=== PATIENT | male | born 1995 | race Asian ===

== ENCOUNTER → 2017-12-18 07:59 | Outpatient (CLI) | payer BC, SELFPAY ==
--- NOTE | 2017-12-18 | DI.MRI.S_ITS ---
PROCEDURE: MR HEAD/BRAIN WO CON INDICATIONS: HEADACHES TECHNIQUE: Noncontrast axial T1 spin echo, axial T2 fast spin echo, sagittal and axial FLAIR, coronal T2 fast spin echo, axial gradient echo, axial diffusion and ADC through the brain. COMPARISON: [facility], RG, CT HEAD W/O CONTRAST, 01/14/2005, 16:50. [facility], CT, HEAD WITHOUT CONTRAST, 02/23/2010, 12:50. FINDINGS: Image quality: Excellent. CSF Spaces: Basal cisterns are patent. No extra-axial fluid collections. Ventricles are normal in size and shape. Brain: No intracranial masses or hemorrhage. Prado/white matter interface is normal. Brainstem appears normal. Diffusion-weighted images demonstrate no acute ischemic insult. No chronic ischemic insults. No suspicious flair signal changes. Normal intravascular flow voids are present. Skull and face: Calvarium has normal marrow signal. Orbits appear normal. Sinuses: There are multiple retention cysts/polyps in the bilateral maxillary and ethmoidal sinuses. No fluid signal seen within mastoid bones. There is prominent age-related adenoid tissue. IMPRESSION: 1. No acute intracranial abnormality. No space-occupying lesion or abnormal signal intensity. 2. Chronic bilateral maxillary and ethmoidal sinusitis. Prominent adenoid tissue. Dictated by: Felix Pal M.D. on 12/18/2017 at 9:53 Approved by: Felix Pal M.D. on 12/18/2017 at 10:00
== END ==
PROVIDERS: PCP Family Medicine; Visit Provider Family Medicine
DX: J32.2 Chronic ethmoidal sinusitis (principal); R51 Headache
CPT/HCPCS: 70551

== ENCOUNTER 2018-05-03 05:14 | Emergency (ER) | payer BC, SELFPAY ==
[2018-05-03 05:18] VITALS: BP 147/82; PULSE 87; RESP 16; TEMP 36.7; O2SAT 99; BMI 20.9
--- NOTE | 2018-05-03 05:28 | ED.URI ---
HPI - URI/Sore Throat General Chief Complaint: Upper Respiratory Symptoms Stated Complaint: Sore throat Time Seen by Provider: 05/03/18 05:28 Source: patient Mode of arrival: ambulatory Limitations: no limitations History of Present Illness HPI Narrative: Patient is a 22-year-old male who presents with sore throat ongoing for last day and a half. He says both of his ears her. No fever or chills. He did take Excedrin about 4 hr ago. No cough or shortness of breath. His throat hurts but he says his ears or worse. Complaint: sore throat Onset (ago): day(s) Duration: constant Relieving factors: nothing Related Data Home Medications Medication Instructions Recorded Confirmed No Known Home Medications 05/03/18 05/03/18 Allergies Allergy/AdvReac Type Severity Reaction Status Date / Time No Known Drug Allergies Allergy Verified 05/03/18 05:18 Review of Systems Review of Systems All systems reviewed & are unremarkable except as noted in HPI and below Constitutional Denies chills, Denies fever(s), Denies lethargy and Denies weakness ENT Ears, Nose, Mouth, and Throat: Reports as per HPI, Denies facial pain and Reports sore throat Cardiovascular Denies chest pain, Denies irregular heart rhythm, Denies lightheadedness, Denies palpitations, Denies dyspnea, Denies dyspnea on exertion and Denies orthopnea Respiratory Denies cough, Denies dyspnea, Denies dyspnea on exertion and Denies wheezing Gastrointestinal Gastrointestinal: Denies abdominal pain, Denies change in bowel habits, Denies diarrhea, Denies nausea and Denies vomiting Musculoskeletal Denies back pain, Denies muscle weakness, Denies numbness and Denies tingling Integumentary/Breasts Denies pruritus, Denies erythema, Denies rash and Denies wounds Neurologic Denies numbness, Denies tingling and Denies weakness Endocrine Denies palpitations Allergic/Immunologic Denies wheezing [facility] Medical History Patient denies medical problems (Acute) Social History Smoking Status: Current every day smoker Exam Initial Vital Signs Initial Vital Signs: Vital Signs Temperature 98.1 F 05/03/18 05:18 Pulse Rate 87 05/03/18 05:18 Respiratory Rate 16 05/03/18 05:18 Blood Pressure 147/82 H 05/03/18 05:18 Pulse Oximetry 99 05/03/18 05:18 GENERAL: Well-appearing, well-nourished and in no acute distress. HEENT: Head atraumatic,EOMI, pupils reactive, neck is supple no meningeal signs EARS: Tympanic membranes visualized, no erythema or bulging, no hemotympanum PHARYNX: No erythema, no tonsillar exudate, no cervical lymphadenopathy CARDIOVASCULAR: Regular rate and rhythm without murmurs, rubs or gallops. RESPIRATORY: Breath sounds equal bilaterally, no wheezes rales or rhonchi. ABDOMEN: Soft, nontender. Normoactive bowel sounds all 4 quadrants. No guarding or rebound. EXTREMITIES: Normal range of motion, no clubbing or edema. Neurovascularly intact NEUROLOGICAL: Alert and oriented x4.Normal gait and speech. Cranial nerves II through XII grossly intact. SKIN: Warm, dry, no laceration, no petechiae, no rashes or lesions. Course Vital Signs - 8 hr 05/03/18 05:18 Temperature 98.1 F Pulse Rate 87 Respiratory Rate 16 Blood Pressure 147/82 H Pulse Oximetry 99 MDM - URI/Sore Throat Lab Data Attestation: I reviewed the patient's lab results. Point of Care Testing Rapid Strep A Negative Discharge Plan Departure Patient Disposition: Home Clinical Impression: Acute upper respiratory infection Instructions: DI for Viral Upper Respiratory Infection -- Adult Activity Restrictions/Additional Instructions: *You have been diagnosed with upper respiratory infection *What to do: Strep is negative at this time no indication for antibiotics. Likely a virus this will run its course should start to feel better around 5. *Continue to take medications as directed Motrin 800 mg every 8 hr as needed for pain or fever Tylenol 650 mg every 4-6 hours if needed for pain or fever *Follow up with your primary care provider in 2-3 days *Return to ER if you should have worsening throat pain, inability to swallow, or any new, worsening or concerning symptoms Prescriptions: No Action No Known Home Medications RF: 0 Referrals: Vick Bhat MD [Primary Care Provider] -
[2018-05-03] MEDS: IBUPROFEN 400 MG TABLET 800 MG PO (05:45)
== END 2018-05-03 05:48 | disposition home or self-care (01) ==
PROVIDERS: Emergency Provider Emergency Medicine; PCP Family Medicine
DX: J06.9 Acute upper respiratory infection, unspecified (principal)
CPT/HCPCS: 87880; 99282; 99283

== ENCOUNTER 2018-11-30 21:27 | Emergency (ER) | payer BC, SELFPAY ==
[2018-11-30 21:36] VITALS: BP 124/75; PULSE 90; RESP 13; TEMP 36.8; O2SAT 99
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
--- NOTE | 2018-11-30 21:41 | PC.NURSE ---
FAST exam performed by dr sharma. Dr Sharma examined chest,heart,lungs and abdomen
[2018-11-30 22:53] VITALS: BP 120/72; PULSE 90; RESP 12; O2SAT 98
== END 2018-11-30 22:53 | disposition home or self-care (01) ==
PROVIDERS: Emergency Provider Emergency Medicine; PCP Family Medicine
DX: S20.229A Contusion of unspecified back wall of thorax, initial encounter (principal); W17.89XA Other fall from one level to another, initial encounter
CPT/HCPCS: 71046; 74019; 99282; 99283

== ENCOUNTER → 2018-12-04 09:16 | Outpatient (CLI) | payer OTHER, SELFPAY ==
--- NOTE | 2018-12-04 | DI.CT.S_ITS ---
PROCEDURE: CT CHEST WO CON INDICATIONS: Hemorrhage from other sites in respiratory passage TECHNIQUE: Noncontrast 5 mm thick sections acquired from the pulmonary apices to the posterior costophrenic angles. 1 mm lung window, 5 mm thick coronal and sagittal and 7 mm axial MIP reformats were then acquired. For radiation dose reduction, the following was used: automated exposure control, adjustment of mA and/or kV according to patient size. COMPARISON: [facility], CR, XR CHEST 2V, 11/30/2018, 21:48. FINDINGS: Image quality: Excellent. Lungs and pleura: Linear atelectasis in posterior aspect of left lower lobe near left lung base is seen. Ill-defined area of groundglass opacity is seen in posterior medial aspect of left lower lobe containing 3 adjacent lobulated cystic areas with mildly thickened wall. The largest cystic area measures 1.7 x 2.4 cm in transverse and AP dimensions. Right lung is clear. No pleural effusions or pneumothorax. Central and peripheral airways are patent and normal in caliber. Mediastinum: Heart size is normal. No pericardial effusion. No mediastinal adenopathy by size criteria. Thoracic aorta and central pulmonary arteries are normal in size. Esophagus is normal in caliber. No hiatal hernia. Bones and chest wall: No suspicious bony lesions. No vertebral body compression fractures. No axillary or supraclavicular adenopathy by size criteria. Thyroid gland is within normal limits. Abdomen: Visualized upper abdominal solid organs and bowel loops appear normal in the absence of contrast. IMPRESSION: 1. Ill-defined moderate-sized area of groundglass opacity in posterior medial aspect of left lower lobe containing 3 adjacent lobulated cystic areas and measures up to 1.7 x 2.4 cm in size. Findings could represent pulmonary contusion and pneumatic cyst formation given patient's history of recent trauma. Infectious process in left lower lobe cannot be excluded. Followup CT in 3 months is recommended for further evaluation. 2. No pleural effusion or pneumothorax. Airway is patent. 3. No mediastinal or hilar lymphadenopathy. No mediastinal hematoma. 4. No gross acute rib fracture. Dictated by: Scottie Prakash M.D. on 12/04/2018 at 13:17 Approved by: Scottie Prakash M.D. on 12/04/2018 at 13:29
== END ==
PROVIDERS: PCP Family Medicine; Visit Provider Family Medicine
DX: R04.89 Hemorrhage from other sites in respiratory passages (principal); R06.09 Other forms of dyspnea
CPT/HCPCS: 71250

== ENCOUNTER → 2020-07-06 12:33 | Outpatient (CLI) | payer OTHER, SELFPAY ==
--- NOTE | 2020-07-06 12:38 | DI.RAD.S_ITS ---
PROCEDURE: XR FOOT RT MIN 3V INDICATIONS: RIGHT FOOT AND ANKLE PAIN TECHNIQUE: 3 views of the foot were acquired. COMPARISON: [facility], CR, XR ANKLE RT MIN 3V, 07/06/2020, 12:41. FINDINGS: Bones: No fractures or dislocations. No suspicious bony lesions. Soft tissues: No tibiotalar joint effusion. Achilles tendon appears normal. IMPRESSION: No definite radiographic abnormality. If pain persists with conservative management, consider cross sectional imaging such as CT or MRI for further assessment. Dictated by: Abelardo Alexander [facility] Interpreted: Zehra Liu MD on 07/06/2020 at 13:00 Approved by: Zehra Liu M.D. on 07/06/2020 at 13:31
--- NOTE | 2020-07-06 12:38 | DI.RAD.S_ITS ---
PROCEDURE: XR ANKLE RT MIN 3V INDICATIONS: RIGHT FOOT AND ANKLE PAIN TECHNIQUE: 3 views of the ankle were acquired. COMPARISON: [facility], , XR FOOT RT MIN 3V, 07/06/2020, 12:41. FINDINGS: Bones: No fractures or dislocations. Smooth, well corticated osseous density adjacent to the medial malleolus. Ankle mortise is normally aligned. No suspicious bony lesions. Soft tissues: No tibiotalar joint effusion. Achilles tendon appears normal. IMPRESSION: Remote fracture fragment adjacent to the medial malleolus versus bony ossicle; otherwise no definite radiographic abnormality. If pain persists with conservative management, consider cross sectional imaging such as CT or MRI for further assessment. Dictated by: Abelardo Alexander [facility] Interpreted: Zehra Liu MD on 07/06/2020 at 13:00 Approved by: Zehra Liu M.D. on 07/06/2020 at 13:31
== END ==
PROVIDERS: PCP Family Medicine; Referring Provider Family Medicine; Visit Provider Family Medicine
DX: M79.671 Pain in right foot (principal); M25.571 Pain in right ankle and joints of right foot
CPT/HCPCS: 73610; 73630

== ENCOUNTER 2020-11-12 15:23 | Emergency (ER) | payer BC, SELFPAY ==
[2020-11-12 15:36] VITALS: BP 133/83; PULSE 90; RESP 16; TEMP 37.4; O2SAT 97; BMI 23.0
[2020-11-12 17:40] VITALS: BP 129/88; PULSE 78; RESP 16; O2SAT 100
--- NOTE | 2020-11-12 18:20 | ED.GENADULT ---
HPI - General Adult General Chief complaint: Abdominal Pain Stated complaint: LOWER ABD PAINS Time Seen by Provider: 11/12/20 17:55 Source: patient Mode of arrival: Ambulatory Limitations: no limitations History of Present Illness HPI narrative: Patient is a 24-year-old male here for evaluation of left-sided lower abdominal discomfort. He states the symptoms started earlier today. He was up walking around when it started. Has been consistent. Initially it did cause some testicular pain but that has now improved. Afebrile. No urinary problems. No problems with bowel movements. No intervention prior to arrival Related Data Home Medications Medication Instructions Recorded Confirmed No Known Home Medications 05/03/18 05/03/18 Allergies Allergy/AdvReac Type Severity Reaction Status Date / Time No Known Drug Allergies Allergy Verified 11/12/20 15:36 Review of Systems Constitutional Constitutional: Denies fever(s) Gastrointestinal Gastrointestinal: Reports as per HPI and Reports system reviewed and no additional complaints, except as documented Genitourinary Genitourinary: Reports as per HPI Musculoskeletal Musculoskeletal: Reports system reviewed and no additional complaints, except as documented Integumentary/Breasts Skin/Breast: Reports system reviewed and no additional complaints, except as documented Neurologic Neurologic: Reports system reviewed and no additional complaints, except as documented Hematologic/Lymphatic On Anticoagulants: No Patient History Medical History Patient denies medical problems Social History Smoking Status: Current every day smoker Smoking Status: Current every day smoker alcohol intake frequency: a few times a week Substance Use Type: marijuana Exam Initial Vital Signs Initial Vital Signs: Vital Signs Temperature 99.3 F 11/12/20 15:36 Pulse Rate 90 11/12/20 15:36 Respiratory Rate 16 11/12/20 15:36 Blood Pressure 133/83 11/12/20 15:36 Pulse Oximetry 97 11/12/20 15:36 HENMT Head: normal to inspection and normocephalic GI Palpation: soft, No guarding and No tender External: normal external exam and circumcised Scrotum: scrotum normal and no inguinal hernias Other: No inguinal hernia felt Skin General: no rashes or lesions noted Neuro General: patient alert, patient awake and patient oriented x3 Extrem Other: Patient points the location over his left hip flexors as the side of his discomfort Psych Appearance: grossly normal Course Vital Signs Vital signs: Vital Signs - 8 hr 11/12/20 15:36 11/12/20 17:40 Temperature 99.3 F Pulse Rate 90 78 Respiratory Rate 16 16 Blood Pressure 133/83 129/88 Pulse Oximetry 97 100 Medical Decision Making Lab Data Labs: Urine Dip Bedside Urine Glucose Negative Bedside Urine Bilirubin - Negative Bedside Urine Ketone - Negative Urine Specific [place] 1.020 Bedside Urine Occult Blood - Negative Bedside Urine pH 6.5 Bedside Urine Protein - Negative Bedside Urine Urobilinogen - Negative Bedside Urine Nitrite - Negative Bedside Urine Leukocytes - Negative Esterase Point of care testing: Urine Dip Bedside Urine Glucose Negative Bedside Urine Bilirubin - Negative Bedside Urine Ketone - Negative Urine Specific [place] 1.020 Bedside Urine Occult Blood - Negative Bedside Urine pH 6.5 Bedside Urine Protein - Negative Bedside Urine Urobilinogen - Negative Bedside Urine Nitrite - Negative Bedside Urine Leukocytes - Negative Esterase MDM Narrative Medical decision making narrative: No hernia felt on the exam. Physical exam is consistent with muscular strain. Testicular tenderness peer no indication for radiologic studies. We did discuss conservative measures. Discussed return precautions and follow-up instructions. He expressed understanding and agreement. Discharge Plan Departure Patient Disposition: Home Clinical Impression: Muscle strain Instructions: DI for Abdominal Muscle Strain Activity Restrictions/Additional Instructions: I have a very high suspicion that your symptoms today are muscle strain and not a hernia. Recommend you take anti-inflammatories for any discomfort. I also recommend that you try to avoid activities that make her symptoms worse. Contact your primary provider for follow-up. Return to the emergency department for any new or worsening symptoms Prescriptions: No Action No Known Home Medications RF: 0 Referrals: Vick Bhat MD [Primary Care Provider] -
== END 2020-11-12 18:33 | disposition home or self-care (01) ==
PROVIDERS: Emergency Provider Emergency Medicine; PCP Family Medicine
DX: S39.011A Strain of muscle, fascia and tendon of abdomen, initial encounter (principal)
CPT/HCPCS: 81003; 99281; 99282

== ENCOUNTER → 2021-04-04 16:01 | Outpatient (CLI) | payer BC, SELFPAY ==
--- NOTE | 2021-04-04 | DI.MRI.S_ITS ---
PROCEDURE: MR FOOT RT WO CON INDICATIONS: FOOT PAIN TECHNIQUE: Noncontrast sagittal T1 spin echo and T2 fast spin echo with fat saturation, long-axis T1 spin echo and T2 fast spin echo with fat saturation, short-axis T1 spin echo and T2 fast spin echo with fat saturation through the forefoot. COMPARISON: [facility], CR, XR FOOT RT MIN 3V, 07/06/2020, 12:41. FINDINGS: Image quality: There is mild inhomogeneous fat saturation. Bones and joints: No bone marrow contusions or fractures. No evidence of metatarsal stress reaction or stress fracture. The sesamoid bones appear in expected positions, with edema and cystic change in the medial sesamoid. There is mild first metatarsophalangeal joint degeneration. No intraosseous lesions. Soft tissues: The visualized plantar foot muscles demonstrate normal signal and bulk. Visualized flexor and extensor tendons appear intact, without tenosynovitis. The distal insertions of the peroneus brevis and longus tendons appear intact. The principal Lisfranc ligament appears intact. No soft tissue ganglion cysts or bursal fluid collections. Sagittal images demonstrate no evidence for plantar plate tears. IMPRESSION: 1. Mild edema and cystic change in the medial sesamoid likely reflecting sesamoiditis. The differential includes a bone contusion. No discrete fracture identified. 2. Mild degeneration at the first metatarsophalangeal joint. Dictated by: Temo Sims M.D. on 04/05/2021 at 9:01 Approved by: Temo Sims M.D. on 04/05/2021 at 9:15
--- NOTE | 2021-04-04 | DI.MRI.S_ITS ---
PROCEDURE: MR ANKLE RT WO CON INDICATIONS: Pain in right ankle and joints of right foot TECHNIQUE: Noncontrast sagittal T1 spin echo and T2 fast spin echo with fat saturation, axial proton density fast spin echo and T2 fast spin echo with fat saturation, coronal T1 spin echo and T2 fast spin echo with fat saturation through the ankle/hindfoot. COMPARISON: [facility], CR, XR ANKLE RT MIN 3V, 07/06/2020, 12:41. FINDINGS: Image quality: There is mild inhomogeneous fat saturation. Bones and joints: No bone marrow contusions or acute fractures. There is a small corticated ossicle inferior the medial malleolus consistent with a prior avulsion fracture. No hindfoot coalitions. No osteochondral injuries of the talar dome. No pathologic joint effusions. Medial structures: The posterior tibialis, flexor digitorum longus, and flexor hallucis longus tendons are intact. The posterior tibial neurovascular bundle appears normal within the tarsal tunnel, without extrinsic mass effect. The deep layer of the deltoid ligament is thickened and demonstrates intermediate signal consistent with a prior sprain. The spring ligament components appear intact. Lateral structures: The anterior talofibular, calcaneofibular, and posterior talofibular ligaments appear intact. More superiorly, the anterior and posterior tibiofibular ligaments also appear intact, as is the intermalleolar ligament. The tibiofibular syndesmosis is normal in width at 2 mm or less. The peroneus longus and brevis tendons demonstrate normal location and morphology. Adjacent bony peroneal tubercle and retrotrochlear prominence are normal in size. The sinus tarsi demonstrates normal fatty signal, without edema, fibrosis, or cyst formation. The calcaneonavicular and calcaneocuboid components of the bifurcate ligament appear intact. The dorsal calcaneocuboid ligament appears intact. Anterior structures: The tibialis anterior, extensor hallucis longus, and extensor digitorum longus tendons appear intact. The dorsal talonavicular ligament appears intact. Posterior and plantar structures: Achilles tendon is intact. Medial and lateral bands of the plantar fascia are of normal thickness. No abductor digiti quinti muscle atrophy to suggest Ariza neuropathy. IMPRESSION: 1. Small ossicle inferior to the medial malleolus consistent with a prior avulsion fracture. 2. Sequelae of a prior sprain of the deltoid ligament. Dictated by: Temo Sims M.D. on 04/05/2021 at 9:16 Approved by: Temo Sims M.D. on 04/05/2021 at 9:36
== END ==
PROVIDERS: PCP Family Medicine; Referring Provider Family Medicine; Visit Provider Family Medicine
DX: M19.071 Primary osteoarthritis, right ankle and foot (principal); M25.571 Pain in right ankle and joints of right foot; S93.421S Sprain of deltoid ligament of right ankle, sequela
CPT/HCPCS: 73718; 73721

== ENCOUNTER → 2021-05-05 12:56 | Outpatient (CLI) | payer BC, SELFPAY ==
--- NOTE | 2021-05-05 13:00 | DI.MRI.S_ITS ---
PROCEDURE: MR LOWER LEG RT WO CON INDICATIONS: Pain in right ankle and joints of right foot TECHNIQUE: Noncontrast coronal and sagittal T1 spin echo and STIR; axial T1 spin echo and T2 fast spin echo with fat saturation through the right tibia and fibula. COMPARISON: [facility], CR, XR ANKLE 3 VIEWS WEIGHT BEARING RIGHT, 04/21/2021, 16:18. [facility], CR, XR TIBIA FIBULA RIGHT, 04/21/2021, 16:47. FINDINGS: Image quality: Excellent. Bones: The visualized bone marrow demonstrates normal overall signal. No bone contusions or fractures. No suspicious intraosseous lesions. No periosteal edema. Soft tissues: The scanned muscles demonstrate normal overall bulk and internal signal. Subcutaneous tissues appear normal as well. No soft tissue masses are present. The visualized proximal segments of the a flexor, extensor, peroneal, and Achilles tendons appear intact. IMPRESSION: 1. No definite acute abnormality in the right tibia or fibula. Specifically, no evidence of stress reaction or stress fracture. No discrete fractures or bone contusions. 2. No suspicious soft tissue mass lesions or evidence of muscle strain. Dictated by: Temo Sims M.D. on 05/05/2021 at 14:51 Approved by: Temo Sims M.D. on 05/05/2021 at 14:59
== END ==
PROVIDERS: PCP Family Medicine; Referring Provider Orthopaedic Surgery Foot and Ankle Surgery; Visit Provider Orthopaedic Surgery Foot and Ankle Surgery
DX: M25.571 Pain in right ankle and joints of right foot (principal)
CPT/HCPCS: 73718

== ENCOUNTER → 2021-12-06 14:12 | Outpatient (CLI) | payer BC, SELFPAY ==
--- NOTE | 2021-12-06 14:15 | DI.RAD.S_ITS ---
PROCEDURE: XR CHEST 2V INDICATIONS: Other chest pain TECHNIQUE: 2 views of the chest were acquired. COMPARISON: [facility], CR, XR CHEST 2V, 11/30/2018, 21:48. FINDINGS: Surgical changes and devices: None. Lungs and pleura: Lungs are clear. No pleural effusions or pneumothorax. Mediastinum: Mediastinal contours are normal. Heart size is normal. Bones and chest wall: No suspicious bony abnormalities. Soft tissues appear unremarkable. IMPRESSION: No acute cardiopulmonary process demonstrated radiographically. Dictated by: Sae Sun M.D. on 12/06/2021 at 15:29 Approved by: Sae Sun M.D. on 12/06/2021 at 15:33
[2021-12-06 15:29] LABS: COVID19 -Nasal RAPID Negative (Negative)
[2021-12-06 18:25] LABS: Amylase 72 U/L (30-110); Lipase 188 U/L (23-300)
== END ==
PROVIDERS: PCP Family Medicine; Referring Provider Family Medicine; Visit Provider Family Medicine
DX: R07.89 Other chest pain (principal); R05.9 Cough, unspecified; Z20.822 Contact with and (suspected) exposure to COVID-19
CPT/HCPCS: 36415; 71046; 82150; 83690; 87635

== ENCOUNTER → 2021-12-19 10:20 | Outpatient (CLI) | payer BC, SELFPAY ==
--- NOTE | 2021-12-19 | DI.CT.S_ITS ---
PROCEDURE: CT SINUS SCREEN WO CON INDICATIONS: Chronic pansinusitis TECHNIQUE: Noncontrast 3.0 mm axial images acquired from the frontal sinuses to the mid-sella, with coronal and sagittal reformats. For radiation dose reduction, the following was used: automated exposure control, adjustment of mA and/or kV according to patient size. COMPARISON: [facility], CT, SINUS SCREEN WO CONTRAST, 08/11/2015, 15:52. FINDINGS: Image quality: Excellent. Maxillary Sinuses: No bony remodeling or destruction. Sinuses are clear other than a small retention cyst measuring 1.25 cm, smaller than the prior. Additional smaller retention cysts noted in the right maxillary sinus. Ethmoid Air Cells: No bony remodeling or destruction. Sinuses are clear. Sphenoid Sinuses: No bony remodeling or destruction. Sinuses are clear. Frontal Sinuses: No bony remodeling or destruction. Sinuses are clear. Ostiomeatal Complexes: Ostiomeatal complexes are patent. No Maylin cells. Miscellaneous: Visualized intra-orbital contents are normal. No karthik bullosa or paradoxical turbinate curvature. No nasal septal deviation. IMPRESSION: 1. Small bilateral maxillary sinus retention cysts, improved from prior Approved by: Emigdio Gutierrez M.D. on 12/19/2021 at 14:27
== END ==
PROVIDERS: PCP Family Medicine; Referring Provider Otolaryngology; Visit Provider Otolaryngology
DX: J32.4 Chronic pansinusitis (principal); J34.1 Cyst and mucocele of nose and nasal sinus; G44.89 Other headache syndrome
CPT/HCPCS: 70486

== ENCOUNTER 2022-01-15 01:16 | Emergency (ER) | payer BC, SELFPAY ==
[2022-01-15] VITALS (17 sets, daily range): BP systolic 104–139; BP diastolic 63–79; PULSE 71–88; RESP 15–20; TEMP 36.2; O2SAT 97–99; BMI 21.1
--- NOTE | 2022-01-15 01:23 | DI.CT.S_ITS ---
PROCEDURE: CT CERVICAL SPINE WO CON INDICATIONS: Fall with vomiting TECHNIQUE: Noncontrast 3 mm thick sections acquired from the skull base to the T4 level. Sagittal and coronal reformats were then constructed. For radiation dose reduction, the following was used: automated exposure control, adjustment of mA and/or kV according to patient size. COMPARISON: None. FINDINGS: Image quality: Excellent. Bones: No fractures or dislocations. Visualized superior ribs are intact. Right maxillary fracture. Soft tissues: Prevertebral soft tissues are normal in thickness. No paravertebral hematomas. No apical pneumothoraces. IMPRESSION: No cervical spine fracture. Dictated by: Derik Ruiz M.D. on 01/15/2022 at 2:10 Approved by: Derik Ruiz M.D. on 01/15/2022 at 2:12
--- NOTE | 2022-01-15 01:23 | DI.CT.S_ITS ---
PROCEDURE: CT HEAD/BRAIN WO CON INDICATIONS: Fall with multiple episodes of vomiting TECHNIQUE: Noncontrast 4.5 mm thick angled axial sections acquired from the foramen magnum to the vertex, with coronal and sagittal reformats. For radiation dose reduction, the following was used: automated exposure control, adjustment of mA and/or kV according to patient size. COMPARISON: [facility], CT, HEAD WITHOUT CONTRAST, 02/23/2010, 12:50. FINDINGS: Image quality: Excellent. CSF spaces: Basal cisterns are patent. No extra-axial fluid collections. Ventricles are normal in size and shape. Brain: No midline shift. No intracranial masses or hemorrhage. Prado-white matter interface is normal. Skull and face: Small right frontal scalp hematoma. Right maxillary fracture. Sinuses: Fluid level in the right maxillary sinus. IMPRESSION: No acute intracranial abnormality. Right maxillary fracture. Small right frontal scalp hematoma. Dictated by: Derik Ruiz M.D. on 01/15/2022 at 2:00 Approved by: Derik Ruiz M.D. on 01/15/2022 at 2:03
--- NOTE | 2022-01-15 01:24 | DI.CT.S_ITS ---
PROCEDURE: CT FACIAL BONES WO CON INDICATIONS: Fall with left-sided jaw pain TECHNIQUE: Noncontrast 2.5 mm thick axial images acquired from the mandible through the frontal sinuses, with coronal and sagittal reformatting. For radiation dose reduction, the following was used: automated exposure control, adjustment of mA and/or kV according to patient size. COMPARISON: None. FINDINGS: Image quality: Excellent. Bones and teeth: Orbital graham are intact. Sinus graham show no fracture or deformity. Nasal bones and septum are intact. Visualized portions of the mandible demonstrate no fractures or subluxation. Zygomatic arches are intact. Pterygoid plates are intact. Visualized portions of the skull base and auditory canals are intact. Sinuses: Multifocal right maxillary sinus fracture involving the anterior, posterior, and lateral graham. Fractures are mildly displaced. The orbital floor appears intact. No retro bulbar hematoma seen. There is mild mucosal thickening involving the ethmoid air cells bilaterally. Trace mucosal thickening in the left maxillary sinus and left frontal sinus. Mastoid air cells are aerated. Soft tissues: Right frontal scalp hematoma. No enlarged lymph nodes. No soft tissue lacerations or debris. Vascular: Visualized vascular structures appear normal in the absence of contrast. Bony vascular foramina and canals are intact. IMPRESSION: Multifocal right maxillary sinus fracture. Hematoma within the right maxillary sinus. Small right frontal scalp hematoma. Dictated by: Derik Ruiz M.D. on 01/15/2022 at 2:12 Approved by: Derik Ruiz M.D. on 01/15/2022 at 2:17
[2022-01-15] MEDS: ONDANSETRON 4 MG/2 ML INJ IV ×2 (01:34→05:42)
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
[2022-01-15] MEDS: LIDOCAINE 1% (PF) 4 ML (02:58)
[2022-01-15] MEDS: SODIUM CHLORIDE 0.9% 1,000 ML 1000 ML IV (03:32)
[2022-01-15] MEDS: ACETAMINOPHEN 325 MG TABLET 975 MG PO (05:44)
== END 2022-01-15 08:06 | disposition home or self-care (01) ==
PROVIDERS: Emergency Provider Emergency Medicine; PCP Family Medicine
DX: S02.40CA Maxillary fracture, right side, initial encounter for closed fracture (principal); S01.81XA Laceration without foreign body of other part of head, initial encounter; S06.0X0A Concussion without loss of consciousness, initial encounter; V19.9XXA Pedal cyclist (driver) (passenger) injured in unspecified traffic accident, initial encounter
CPT/HCPCS: 36415; 51798; 70450; 70486; 72125; 96361; 96374; 96376; 99285; J2405